=== PATIENT | male | born 1950 | race Caucasian/White ===

== ENCOUNTER → 2017-03-14 | Outpatient (CLI) | payer OTHER ==
--- NOTE | ~2017-03-14 | CR63 ---
[facility] A Service of [facility] & [facility] RADIOLOGY TEXT RESULTS PATIENT: NEHEMIAS RONQUILLO LOCATION: [facility] : 54 UNIT #: [id number] AGE: [address]: Glenn Marte MD SEX: M ORDER DR: [id number] [facility] [address] [place], [place] [address] [id number] O MR#: [id number] Acc #: [id number] NAME: NEHEMIAS RONQUILLO : 1950 SEX: M STUDY DATE/TIME: 03/14/2017 10:30 UNIT: [facility] ROOM: STUDY DESCRIPTION: CR Chest 2 View Attending Physician: Glenn Marte M.D., Ph.D. Referring Physician: Glenn Marte M.D., Ph.D. Ordering Physician: Glenn Marte M.D., Ph.D. Primary Care Physician: Primary Care Physician No MEDICAL IMAGING REPORT This report is preliminary unless electronic signature is present EXAM PA and lateral chest 03/14/2017 HISTORY 66-year-old male with right lower chest pain for 2 weeks. History of right lung cancer. 40-year smoking history. COMPARISON AP portable chest 02/20/2017. FINDINGS There is volume loss in the right hemithorax with blunting of the right costophrenic angle, similar to the previous examination. No acute airspace disease is identified. Background emphysematous changes are thought to be present. The right apical pleural fluid or pleural capping appears diminished, although some pleural thickening does remain. Left chest wall Port-A-Cath extends to the SVC. Heart size is normal. IMPRESSION 1. Right apical capping or pleural fluid appears improved since 02/20/2017. 2. Volume loss in the right hemithorax thought to represent changes of partial right pneumonectomy. 3. No acute airspace disease. 4. Emphysema. Dictated by... Bindu Mohr M.D. THIS IS AN ELECTRONICALLY VERIFIED REPORT Bindu Mohr M.D. at 03/15/2017 6:13 AM [facility] A Service of [facility] & [facility] RADIOLOGY TEXT RESULTS PATIENT: NEHEMIAS R[facility]ILLO [id number] [birth year] UNIT #: [id number] AGE: [address]: Glenn Marte MD SEX: M ORDER DR: TD: 03/14/2017 14:13 JOB #: [id number] MEDICAL IMAGING REPORT Page 1 of 1 COPY
== END | disposition home or self-care (01) ==
LOC: CRAD 10:17
DX: R07.9 Chest pain, unspecified (principal); J43.9 Emphysema, unspecified; Z90.2 Acquired absence of lung [part of]
CPT/HCPCS: 71020